=== PATIENT | female | born 1980 | race Caucasian/White ===

== ENCOUNTER 2021-10-01 09:39 | Outpatient (CLI) | payer BC | END 2021-10-01 09:40 | disposition home or self-care (01) | LOC: CSHMAMMO 09:39 | DX: Z12.31 Encounter for screening mammogram for malignant neoplasm of breast (principal) | CPT/HCPCS: 77063; 77067 ==

== ENCOUNTER 2023-12-01 09:35 | Outpatient (CLI) | payer BC | END 2023-12-01 09:36 | disposition home or self-care (01) | LOC: CSHMAMMO 09:35 | PROVIDERS: ATTEND Obstetrics & Gynecology | DX: Z12.31 Encounter for screening mammogram for malignant neoplasm of breast (principal) | CPT/HCPCS: 77067 ==

== ENCOUNTER 2024-12-02 11:48 | Outpatient (CLI) | payer BC | END 2024-12-02 11:49 | disposition home or self-care (01) | LOC: CSHMAMMO 11:48 | PROVIDERS: ATTEND Obstetrics & Gynecology | DX: Z12.31 Encounter for screening mammogram for malignant neoplasm of breast (principal) | CPT/HCPCS: 77063; 77067 ==